=== PATIENT | female | born 1970 | race Caucasian/White ===

== ENCOUNTER → 2016-11-28 | Outpatient (CLI) | payer OTHER ==
--- NOTE | 2016-11-28 17:17 | REP ---
Digital diagnostic bilateral mammography with CAD and focused left breast sonography: History: Lump in the left breast. Mammographic findings: No comparison mammography is available. Routine views of each breast are obtained. A skin marker is affixed to the skin at the site of the palpable lump which projects in the upper outer quadrant. Left breast mammography is augmented with the magnified focal spot compression views in the CC, MLO and true MLO projection as well as laterally exaggerated CC view. The left breast views demonstrate a spherical mass at the site of the palpable lump 3 cm in greatest diameter. There are two or three other smaller spherical masses in the heterogeneously dense breast parenchyma in the upper outer quadrant of the left breast as well. Some vascular calcification is noted. No suspicious calcification is seen. Right breast parenchyma is heterogeneously dense in a pattern which may inhibit the sensitivity of mammography as well. Sonographic findings: The upper outer quadrant of the left breast is scanned. There are innumerable cysts. The largest cyst is felt to correspond with the mammographic opacity and measures 3.0 x 1.7 x 2.0 cm. There are multiple smaller cysts. Most of these are anechoic and simple sonographically. There is a fluid debris level in one of the cysts at 1 o'clock. This measures 8 mm in greatest diameter. In addition at 3 o'clock and 1 o'clock in the periareolar region there are 2 solid appearing hypoechoic nodules which may be complex cysts or solid nodules. These measure 8 mm each in greatest diameter. Impression: The patient's palpable mass corresponds to a sonographically simple benign-appearing 3 cm cyst. However, sonography also shows two 8 mm solid lesions and one complex cystic lesion in the left breast periareolar region. BIRADS category 4 suspicious left breast imaging. Ultrasound-guided aspiration of the complex cyst and aspiration and/or needle biopsy of the two solid appearing nodules suggested. BI-RADS/ACR category 4A mammogram. Findings needing intervention with a low suspicion for malignancy. Usually requires biopsy. This mammogram was interpreted with the aid of an FDA-approved computer-aided detection system. The patient states she had a clinical breast exam in November 2016. The patient letter being requested is M4. Signed by Harjeet Armando MD 11/29/2016 09:40 A
== END ==
LOC: M RAD 14:01
PROVIDERS: ATTEND Nurse Practitioner Family
DX: N63 Unspecified lump in breast (principal)